=== PATIENT | female | born 1985 | race Caucasian/White ===

== ENCOUNTER 2018-04-06 07:00 | Inpatient (IN) | payer OTHER, SELFPAY ==
[2018-04-06] MEDS: Lactated Ringers 1,000 ML 50 ML IV ×2 (07:39→13:59)
[2018-04-06 07:40] VITALS: BMI 31.9
[2018-04-06] MEDS: Oxytocin 30 units/NS 500 ml 30 UNITS/500 ML IV.SOLN IV (08:10)
[2018-04-06 08:15] LABS: Hematocrit 33.8 % (37-47); Hemoglobin 11.8 g/dl (12.0-15.0); Mean Corp Hgb Conc 34.9 g/gl (32-36); Mean Corpuscular Hgb 30.9 pg (27.0-32.0); Mean Corpuscular Volume 88.5 fL (81-99); Mean Platelet Vol. 9.7 fl (6.2-12.0); Platelet Count 298 K/mm3 (150-450); RBC Distribution Width CV 12.7 % (11.6-14.6); RBC Distribution Width SD 39.6 fl (35.1-43.9); Red Blood Count 3.82 M/mm3 (4.2-5.4); White Blood Count 8.6 K/mm3 (4.4-11.0)
[2018-04-06 08:20] LABS: Scan Indicated on CBC? Y/N NO
--- NOTE | 2018-04-06 13:05 | PCM.HP.OB ---
History Date of Admission: 04/06/18 Final MERRITT: 04/10/18 Final MERRITT Source: US <20 weeks - confirmed by first trimester US Gestational age: 39 Weeks and 3 Days History of this : This is a 32 year-old, 2 para 1 female at 39 3/7 weeks with EDC of 04/10/2018 by last menstrual period confirmed by first trimester ultrasound presents today for induction of labor. This is an elective induction for maternal discomfort and history of LGA delivery of 9 pound 3 ounce without significant complications. Current has been uncomplicated to date. She denies any vaginal bleeding or leaking of fluid. She has not had any regular contractions. Allergies No Known Allergies Allergy (Verified 06/15/16 16:57) Home Medications: Home Medications Pnv with Ca #68/Iron/FA#1/Dha [Virt-Pn Plus Softgel] 1 each PO DAILY MDD 1 04/06/18 Smoking Status: Never smoker Alcohol: None Number of Fetus(es): 1 Heart Tracing: Normal baseline, moderate variability. Spontaneous accelerations without recurrent deceleration TOCO Analysis: Regular contractions History Past Pregnancies: Past Pregnancies Delivery Date Name GA/Weeks Outcome Route Weight Infant Gender Labor Length Anesthesia Delivery Location Provider FOB Expected Infant Delivery Method: Spontaneous Vaginal Review of Systems Constitutional: Denies: Anorexia, Chills Cardiovascular: Denies: Chest Pain Respiratory: Denies: Cough Genitourinary: Denies: Dysuria Skin: Denies: Rash Physical Exam General: Alert, Cooperative, No apparent distress Abdomen: Soft, Non-Distended, Gravid, Appropriate for Gestational Age Extremities:: Other - edema 1+ MOTOR INSTALLER: Normal external genitalia Estimated gestational size: Appropriate for gestational size Presentation: Cephalic Cervix Dilation (cm): 5 - AROM w/ moderate clear fluid Station: 0 Effacement (%): 80 Assessment/Plan This is a 32 year-old, 2 para 1 female at 39 3/7 weeks gestation for elective induction of labor due to history of previous 9 pound 3 ounce delivery. Estimated weight of this fetus is presently 4500 g clinically. Pelvis is clinically adequate to expect vaginal delivery. Risk benefits and alternatives to induction been discussed with the patient and her questions were answered to her satisfaction and consent was signed. Will undergo Pitocin and artificial rupture membranes as needed. May have epidural, nitrous oxide or Nubain as needed for pain control.
[2018-04-06] MEDS: fentaNYL-bupivacaine (epidural) 100 ML BAG EPIDURAL (14:02)
[2018-04-06] MEDS: Oxytocin 30 units/NS 500 ml 30 UNITS/500 ML IV.SOLN 334 UNITS IV (14:47)
--- NOTE | 2018-04-06 15:03 | PCM.OB.VAG ---
Vaginal Delivery Maternal Presentation: Elective Induction Method of Induction: Pitocin, Amniotomy Medical Reason for Induction: - - h/o LGA delivery Amniotic Membrane Rupture Type: Artificial Amniotic Fluid Description: Clear Final MERRITT: 04/10/18 Gestational age: 39 Weeks and 3 Days Date of Procedure: 04/06/18 Pre-Operative Diagnosis: labor Post-Operative Diagnosis: same Surgery/ Procedure Performed: Spontaneous Vaginal Delivery Type of Anesthesia: Epidural Description of Procedure: A vigorous female was delivered PENELOPE over a second-degree perineal laceration. The remainder the infant was delivered with maternal pushing and gentle traction only in less than 15 seconds. The Pitocin infusion was initiated for active management of the third stage. The cord was clamped and cut after 1 minute. The infant was attended to by the waiting nursing staff. The placenta was delivered spontaneously and intact. The cervix and vagina were intact. The second-degree perineal laceration was repaired with 3-0 Vicryl suture in a running standard fashion. Sponge and needle counts were correct. A vaginal sweep was completed by me. Presentation: PENELOPE Placental Delivery Description: Spontaneous Placenta Disposition: [facility] Cord Vessel Description: 3 Vessels Cord Entanglement: None Drain: - - none Estimated Blood Loss: 300 A gender: Female (1 minute): 9 (5 minute): 10 Episiotomy Description: None Laceration: 2nd degree
[2018-04-06] MEDS: Oxytocin 30 units/NS 500 ml 30 UNITS/500 ML IV.SOLN 167 UNITS IV (15:16)
[2018-04-06] MEDS: 0.9% Saline Lock 10 ML Syringe IV (16:43)
[2018-04-06 18:00] VITALS: BP 99/62; PULSE 79; RESP 16; TEMP 37
[2018-04-06 20:30] VITALS: BP 108/69; PULSE 71; RESP 16; TEMP 36.3
[2018-04-06] MEDS: Acetaminophen 500 MG Tablet 1000 MG PO (22:38)
[2018-04-07 00:50] VITALS: BP 119/60; PULSE 76; RESP 16; TEMP 36.4
[2018-04-07 04:00] VITALS: BP 119/70; PULSE 67; RESP 16; TEMP 36.6
[2018-04-07] MEDS: Acetaminophen 500 MG Tablet 1000 MG PO (07:52)
[2018-04-07 09:20] VITALS: BP 104/75; PULSE 68; RESP 16; TEMP 36.6; O2SAT 98
[2018-04-07 12:30] VITALS: BP 106/67; PULSE 70; RESP 16; TEMP 36.6; O2SAT 98
--- NOTE | 2018-04-07 12:30 | PCM.PN.OB ---
Subjective: pain well controlled, average lochia - Physical Exam General: Alert, Cooperative, No apparent distress Abdomen: Soft Vital Signs Temp Pulse Resp BP Pulse Ox 98 F 68 16 104/75 98 04/07/18 09:20 04/07/18 09:20 04/07/18 09:20 04/07/18 09:20 04/07/18 09:20 Oxygen Delivery Method Room Air Weight: 91.2 kg Body Mass Index (BMI) 31.9 Intake and Output for Last 24 Hours 04/05/18 04/06/18 04/07/18 23:59 23:59 23:59 Intake Total 3027 / 3027 Output Total 2100 / 2100 Balance 927 / 927 Medical Necessity - Tobacco Use Smoking Status: Never smoker Assessment/Plan PPD#1 s/p doing well desires d/c
--- NOTE | 2018-04-07 12:32 | PCM.DCVAG ---
Discharge Diet: No Restrictions Discharge Activity: Return to Normal Activity, May not drive while taking narcotic pain medications., May Shower May resume sexual activity in: 4-6 weeks Additional Activity Instructions:: Nothing in the vagina for 4-6 weeks. You may return to work/school in 6 weeks. Call your doctor if your incision/area has: Continuous Slow Oozing, Sudden Increased Bleeding, Increased Pain/ Swelling, Increased Redness, Foul Smelling Discharge Additional Instructions: If you experience any of the following, contact your healthcare provider. Bleeding that soaks a pad every hour for 2 hours Fever 100.4 or higher Unrelieved incision or abdominal pain Swelling, redness, discharge or bleeding from your incision or episiotomy site Your incision begins to separate Problems urinating (including inability to urinate or burning while urinating). Visual changes Severe headache Flu-like symptoms Pain or redness in one of both of your breasts Pain, warmth, tenderness or swelling in your legs, especially the calf area Frequent nausea and vomiting Symptoms of depression or anxiety If you experience any of the following, call 911 or go to the nearest Emergency Room. Chest pain Problems breathing Seizure activity Partial or complete paralysis of a body part, slurred speech, weakness or drooping of the face, or a sudden inability to walk or hold your balance Allergies/Adverse Reactions: Allergies No Known Allergies Allergy (Verified 06/15/16 16:57) Medications to take at Discharge Pnv with Ca #68/Iron/FA#1/Dha [Virt-Pn Plus Softgel] 1 each PO DAILY MDD 1 04/06/18 Please Follow Up With: Saray Eric MD - [phone] When: Call to make an appointment with your doctor in 2 and 6 weeks. Primary Care Physician: [facility] ,Out of [Primary Care Provider] - Test Results: Test results from this visit will be discussed in further detail at your follow-up appointment, if applicable.
--- NOTE | 2018-04-07 12:33 | DCINST_ITS ---
Discharge Diet: No Restrictions Discharge Activity: Return to Normal Activity, May not drive while taking narcotic pain medications., May Shower May resume sexual activity in: 4-6 weeks Additional Activity Instructions:: Nothing in the vagina for 4-6 weeks. You may return to work/school in 6 weeks. Call your doctor if your incision/area has: Continuous Slow Oozing, Sudden Increased Bleeding, Increased Pain/ Swelling, Increased Redness, Foul Smelling Discharge Additional Instructions: If you experience any of the following, contact your healthcare provider. * Bleeding that soaks a pad every hour for 2 hours * Fever 100.4 or higher * Unrelieved incision or abdominal pain * Swelling, redness, discharge or bleeding from your incision or episiotomy site * Your incision begins to separate * Problems urinating (including inability to urinate or burning while urinating). * Visual changes * Severe headache * Flu-like symptoms * Pain or redness in one of both of your breasts * Pain, warmth, tenderness or swelling in your legs, especially the calf area * Frequent nausea and vomiting * Symptoms of depression or anxiety If you experience any of the following, call 911 or go to the nearest Emergency Room. * Chest pain * Problems breathing * Seizure activity * Partial or complete paralysis of a body part, slurred speech, weakness or drooping of the face, or a sudden inability to walk or hold your balance Allergies/Adverse Reactions: Allergies No Known Allergies Allergy (Verified 06/15/16 16:57) Medications to take at Discharge Pnv with Ca #68/Iron/FA#1/Dha [Virt-Pn Plus Softgel] 1 each PO DAILY MDD 1 04/06/18 Please Follow Up With: Saray Eric MD - [phone] When: Call to make an appointment with your doctor in 2 and 6 weeks. Primary Care Physician: [facility] ,Out of [Primary Care Provider] - Test Results: Test results from this visit will be discussed in further detail at your follow- up appointment, if applicable.
[2018-04-07] MEDS: Ibuprofen 600 MG Tablet PO (13:37)
== END 2018-04-07 15:45 | disposition home or self-care (01) | DRG 807 ==
PROVIDERS: Admitting Provider Obstetrics & Gynecology; Referring Provider Obstetrics & Gynecology; Visit Provider Obstetrics & Gynecology
DX: O70.1 Second degree perineal laceration during delivery (principal); O75.89 Other specified complications of labor and delivery; Z37.0 Single live birth; Z3A.39 39 weeks gestation of pregnancy
CPT/HCPCS: 59025; 59050; 85027; 86850; 86900; 99218; J7120; A4216; G0378

== ENCOUNTER 2018-08-26 17:25 | Day surgery (SDC) | payer OTHER, SELFPAY ==
[2018-08-26 17:51] VITALS: BP 110/77; PULSE 75; RESP 16; TEMP 37.1; O2SAT 97
[2018-08-26 18:02] LABS: Hematocrit 37.5 % (37-47); Hemoglobin 12.7 g/dl (12.0-15.0); Mean Corp Hgb Conc 33.9 g/gl (32-36); Mean Corpuscular Hgb 30.7 pg (27.0-32.0); Mean Corpuscular Volume 90.6 fL (81-99); Mean Platelet Vol. 9.4 fl (6.2-12.0); Platelet Count 333 K/mm3 (150-450); RBC Distribution Width CV 11.7 % (11.6-14.6); RBC Distribution Width SD 37.5 fl (35.1-43.9); Red Blood Count 4.14 M/mm3 (4.2-5.4); White Blood Count 7.2 K/mm3 (4.4-11.0)
[2018-08-26 18:21] LABS: Scan Indicated on CBC? Y/N NO
[2018-08-26] MEDS: Cefazolin 1 GM/50 ML BAG IV (18:48)
[2018-08-26] MEDS: Bupivacaine Mpf 0.5% 30 ML VIAL (18:52)
--- NOTE | 2018-08-26 19:00 | PCM.OPRPT ---
Report of Operation Date of Procedure: 08/26/18 Pre-Operative Diagnosis: Acute pelvic pain, malpositioned IUD Post-Operative Diagnosis: Same Surgery/Procedure Performed:: Laparoscopic removal of intraperitoneal Mirena IUD Description of Surgical Findings:: Normal-appearing cervix, vagina, uterus, tubes and ovaries. Small perforation on the right side of the uterine fundus. paper products supervisor: None Type of Anesthesia:: General Anesthesiologist: Prabhjot Suresh Special Medications: None Specimen's removed: None Drains: none Estimated Blood Loss (mL): 10 Fluids Replaced: 800 cc lr Description of Procedure: The patient was taken to the operating room where she was prepped and draped in the dorsolithotomy position. A weighted speculum was placed in the vagina and the anterior lip of the cervix was grasped with a tenaculum. When I went to gently sound the uterus, the sound past easily through the uterine fundus. At that point, the decision was made not to proceed with the hysteroscopy since the uterine perforation was confirmed. The [place] uterine manipulator was placed into the uterus up to 7 cm and the balloon was inflated. Attention was turned to the abdomen. All port sites were infiltrated with 0.5% Marcaine before skin incisions were made. A 5 mm intraumbilical incision was made. The anterior abdominal wall was tented up with 2 towel clamps while a 5 mm blade less trocar and sleeve were inserted using the Optiview trocar utilized the abdominal wall layers. Intraperitoneal placement was confirmed with the laparoscope. The pneumoperitoneum was created and the underlying abdominal contents were intact. The patient was placed in Trendelenburg. A left lower quadrant port was placed under direct visualization lateral to the inferior epigastric vessels. The bowel was swept away and the above findings were noted. The IUD was lying in the posterior cul-de-sac. A grasper was placed through the port and removed intact without difficulty. A visualization of the pelvic structures, and the bowel and colon were performed. There was no ecchymoses, bleeding, or defects noted other than a nonbleeding small perforation site at the right side of the uterine fundus. The procedure in the office had been approximately 2 hours ago, and there was only a 5 cc clot in the posterior cul-de-sac. There was no active bleeding from the uterus, and there were no hematomas noted in the broad ligament. Decision was made to terminate the procedure. The lateral trocar was brought out under direct visualization and the site was hemostatic. Pneumoperitoneum was released. The skin incisions were closed with Monocryl suture in a subcuticular fashion and skin glue . The vaginal instruments were removed and the vaginal sweep was completed by me. The procedure was performed by me with assistance. All sponge and needle counts were correct and the patient was taken to the recovery room in stable condition. Grafts/Implants Used: None - Complications None - Admit VTE Documentation VTE Present on Admission: No VTE Mechan Device Prophylaxis: SCD's VTE Pharm Prophylaxis ordered?: No
--- NOTE | 2018-08-26 19:12 | PCM.DC.TUB ---
Discharge Diet: No Restrictions - Increase fluid intake for the next 48 hours. Discharge Activity: Return to Normal Activity, May Drive - when you are no longer taking pain/narcotic meds., May Shower, May Take a Tub Bath - in 3 days Return to work on:: 08/31/18 May shower in (days): 1 May resume sexual activity in: 2 weeks Additional Activity Instructions:: Ambulate often the next week after surgery. Nothing in the vagina for 5 days. Call your doctor if your incision/area has: Continuous Slow Oozing, Sudden Increased Bleeding, Increased Pain/ Swelling, Increased Redness, Foul Smelling Discharge Call your doctor if you observe: Fever of 101 or Higher Cleanse incision/area with: Soap & Water Allergies/Adverse Reactions: Allergies No Known Allergies Allergy (Verified 08/26/18 18:01) Medications to take at Discharge 68/Iron/Folic No1/Dha [Virt-Pn Plus Softgel] 1 each PO DAILY MDD 1 04/06/18 Hydrocodone/Acetaminophen [[place] 5-325 Tablet] 1 - 2 each PO Q6H PRN PRN #14 tablet 08/26/18 Ibuprofen [Motrin] 600 mg PO Q6H PRN #60 tablet 08/26/18 The following prescriptions were given: Hydrocodone/Acetaminophen [[place] 5-325 Tablet] 1 - 2 each PO Q6H PRN PRN #14 tablet PRN Reason: Mod-Severe Pain (4-10/10) Ibuprofen [Motrin] 600 mg PO Q6H PRN #60 tablet PRN Reason: Pain Primary Care Physician: [facility] ,Out of [Primary Care Provider] - Test Results: Test results from this visit will be discussed in further detail at your follow-up appointment, if applicable. Please Follow Up With: Saray Eric MD - [phone] When: 1-2 weeks or as needed
[2018-08-26 19:18] VITALS: BP 110/77; BP 114/87; PULSE 78; RESP 16; TEMP 36.5; O2SAT 96
[2018-08-26 19:30] VITALS: BP 110/77; BP 116/89; PULSE 65; RESP 16; O2SAT 98
[2018-08-26 19:45] VITALS: BP 110/77; BP 117/80; PULSE 60; RESP 16; TEMP 36.4; O2SAT 97
[2018-08-26 20:10] VITALS: BP 110/77
== END 2018-08-26 20:16 | disposition home or self-care (01) ==
LOC: SDC 17:26 → AC 17:29
PROVIDERS: Referring Provider Obstetrics & Gynecology; Visit Provider Obstetrics & Gynecology
PROC: (CPT 58661; principal; 2018-08-26 18:30)
DX: Z30.432 Encounter for removal of intrauterine contraceptive device (principal); R10.2 Pelvic and perineal pain; T83.89XA Other specified complication of genitourinary prosthetic devices, implants and grafts, initial encounter; Y83.9 Surgical procedure, unspecified as the cause of abnormal reaction of the patient, or of later complication, without mention of misadventure at the time of the procedure; Y92.9 Unspecified place or not applicable
CPT/HCPCS: 00840; 49320; 36415; 85027; J7120; J2405

== ENCOUNTER 2019-05-06 18:52 | Emergency (ER) | payer OTHER, SELFPAY ==
[2019-05-06 18:53] VITALS: BP 125/80; PULSE 97; RESP 16; TEMP 36.7; O2SAT 98; BMI 26.6
--- NOTE | 2019-05-06 19:00 | RAD_ITS ---
STUDY: X-RAY CHEST REASON FOR EXAM: Female, 33 years old. Chest pain TECHNIQUE: PA and lateral views of the chest COMPARISON: None. FINDINGS: The lungs are clear. There are no pleural effusions. There is no pneumothorax. The heart is normal in size. The visualized osseous structures are within normal limits. RAD/Chest PA and Lateral IMPRESSION: No acute thoracic pathology. Electronically Signed: Steve Pfeiffer, at 19:09 EST Tel , Service support ,
--- NOTE | 2019-05-06 21:08 | EKG12_ITS ---
Test Reason : SOB Blood Pressure : / mmHG Vent. Rate : 077 BPM Atrial Rate : 077 BPM P-R Int : 190 ms QRS Dur : 080 ms QT Int : 338 ms P-R-T Axes : 038 074 037 degrees QTc Int : 382 ms Normal sinus rhythm Nonspecific T wave abnormality Abnormal ECG Confirmed by SIRIA LY, MARCIE ([id number]), editor book KIKI GARCIA ([id number]) on 05/11/2019 2:11:51 PM Referred By: STUART Confirmed By:MARCIE BEVERLY MD
--- NOTE | 2019-05-06 21:10 | ED.VIS.CHEST ---
History of Present Illness Chief Complaint: Shortness of Breath Informant: Patient Onset: Weeks - 1 Activity at onset: Rest - but occured w/ exertion today Timing: Intermittent Quality: Tightness - across chest w/ radiation into left upper back/neck Location: Substernal Current Severity: Mild Maximum Severity: Moderate Worsened By: Exertion - today, around 4-5 hrs ago, Breathing Relieved By: Rest Associated Symptoms: Dyspnea, Lightheadedness - once today, Palpitations - couple times felt skip while sitting here in ED. Negative for: Nausea, Vomiting, Diaphoresis, Cough, Fever, Acid Reflux Narrative: Patient states she has been having a lot of stress at work and home. For this reason she did not think much about the episodes of chest tightness that she was having for the past week which were without any other associated symptoms. She usually runs about 15-20 miles per week and works out regularly. Today, she was walking on the treadmill and at about 2 miles she felt inexplicably dyspneic and having the chest tightness worsen. She stopped and felt lightheaded transiently. Over the past 4 5 hours she has had the symptoms persist although they are more mild. She feels like when she takes deep breath it is hard to inflate her lungs all the way because of things feeling tight, she does not have a focal sharp pleuritic pain. CVD Risk Factors: Negative for: Hypertension, Diabetes, Hypercholesterolemia, Family History 1' </=55, Smoking PE Risk Factors: Negative for: Recent Travel/Surgery, Recenet Immobilization, Prior DVT or PE, Cancer, OCP + Smoking + >/=35 TAD Risk Factors: Negative for: Marfan's Syndrome, Hypertension, Family History Past Medical History - Allergies and Home Meds Allergies/Adverse Reactions: Allergies No Known Allergies Allergy (Verified 08/26/18 18:01) Primary Care Physician: [facility],Out of [Primary Care Provider] - Past Medical History: None Surgical History: - - Laparoscopic abdominal surgery to remove the IUD embedded in her uterine wall 07/2018 Lives: With Family Smoking Status: Never smoker Drugs: None Review of Systems General: Denies: Chills, Fever, Sweats Eyes: Reports: - - Right eye pain since yesterday after her 1-year-old accidentally poked her in the eye. Denies: Visual changes - bilaterally, Diplopia ENT: Denies: Bilateral ear pain, Rhinorrhea, Sore throat Cardiovascular: Reports: Chest pain, Palpitations Respiratory: Reports: Dyspnea. Denies: Cough, Dyspnea on exertion Gastrointestinal: Denies: Abdominal pain, Nausea, Vomiting, Diarrhea, Melena, Hematochezia Genitourinary: Denies: Dysuria, Hematuria, Frequency Musculoskeletal: Reports: Neck pain, Back pain. Denies: Swelling, Extremity Pain Skin: Denies: Rash, Wounds Neurological: Denies: Headache, Weakness, Numbness Psych: Reports: - - stress Physical Exam Vital Signs/Narrative: Vital Signs Temp Pulse Resp BP Pulse Ox 05/06/19 18:53 98.0 F 97 16 125/80 H 98 Inital Vital Signs reviewed: Yes General: Well nourished, Well developed, No Acute Distress Head: Normocephalic, Atraumatic Eyes: Perrl, EOMI ENT: Moist mucous membranes, No rhinorrhea Neck: Supple, Nontender, No lymphadenopathy, No JVD Cardiovascular: Regular rate, Regular rhythm, No murmurs, Normal S1, Normal S2, - - Equal bilateral 2+/4 radial pulses. Negative for: Tachycardia Respiratory: No distress, CTA bilaterally, Chest nontender Abdomen: Soft, Nontender, Nondistended, Normal bowel sounds Back: Nontender, Normal Inspection Extremities: Nontender, No edema. Negative for: Calf Tenderness Skin: Normal color, No rash, No Trauma Neurological: Alert, Oriented x3, Cranial nerves II-XII grossly intact, Normal Strength, Normal Sensation Psychological: Normal affect, Normal Mood Diagnostic/Tx/Re-eval Impressions Chest X-Ray 05/06/19 19:00 IMPRESSION: No acute thoracic pathology. Electronically Signed: Steve Pfeiffer, at 19:09 EST Tel , Service support , 05/06/19 19:00 CXR [Chest PA and Lateral] [RAD] Stat Laboratory Results 05/06/19 05/06/19 05/06/19 21:20 21:20 21:20 WBC 4.0 L RBC 4.24 Hgb 12.8 Hct 38.0 MCV 89.6 MCH 30.2 MCHC 33.7 RDW Std Deviation 36.3 RDW Coeff of Shira 11.2 L Plt Count 235 MPV 9.0 Immature Gran % (Auto) 0.300 Neut % (Auto) 63.9 Lymph % (Auto) 25.3 [place] % (Auto) 9.9 Eos % (Auto) 0.3 Baso % (Auto) 0.3 Absolute Neuts (auto) 2.5 Absolute Lymphs (auto) 1.00 Nucleated RBC % 0 D-Dimer Quant (PE/DVT) < 0.27 L Sodium 139 Potassium 3.6 Chloride 103 Carbon Dioxide 27.0 Anion Gap 9 BUN 7 Creatinine 0.62 Estim Creat Clear Calc 119.69 Est GFR (MDRD) Af Amer 142 Est GFR (MDRD) Non-Af 117 BUN/Creatinine Ratio 11.3 Glucose 100 Calcium 9.2 Troponin I < 0.015 - Rhythm Strip Rhythm Strip: Sinus Rhythm Rate: 77 Ectopy: None - EKG Initial EKG Interpretation: Sinus Rhythm, No Acute Injury Pattern, Non-Specific ST Changes - inferior and septal-high lateral T-wave flattening; no ST segment deviations. Prior: No Prior Treatment: - - none Repeat Eval: Pain Free - Medical Decision Making Work-up is completely unremarkable except for some nonspecific T wave flattening on her EKG as above. Her d-dimer is negative ruling out PE. Her electrolytes and blood counts are normal, her troponin is negative after having episodes for a week. Etiology of this is unknown, she has had no evidence of a dysrhythmia here, she was offered nitroglycerin but had no chest discomfort when she was reevaluated, so she did not take any. Unknown if any of this is cardiac in etiology, it could be pulmonary or esophageal. At this time I feel she is stable to be discharged home to follow-up as an outpatient; she is comfortable with this plan as well. ED Disposition - Plan for ED Patient: Disposition: Home or Assisted Living Diagnosis: Intermittent chest pain Instructions: CHEST PAIN, Uncertain Cause Referrals: [facility] Doctor,Out of [Primary Care Provider] - 1 Week (call for appt)
[2019-05-06 21:17] VITALS: PULSE 80; RESP 16; O2SAT 98
[2019-05-06] MEDS: 0.9% Normal Saline 1,000 ML 150 ML IV (21:19)
[2019-05-06 21:27] LABS: Absolute Neutrophil Count 2.5 X10^3/uL (2.0-7.7); Basophil# 0.01 X10^3/uL; Basophil% 0.3 % (0-1); Eosinophil# 0.01 X10^3/uL; Eosinophils% 0.3 % (0-5); Hemoglobin 12.8 g/dL (12.0-15.0); Lymphocyte % 25.3 % (19-41); Mean Corp Hgb Conc 33.7 g/dL (32-36); Mean Corpuscular Hgb 30.2 pg (27.0-32.0); Mean Corpuscular Volume 89.6 fL (81-99); Monocyte# 0.39 X10^3/uL; Monocyte% 9.9 % (0-10); NRBC Flagged by Analyzer 0 % (0-5); Neutrophil # 2.53 X10^3/uL (2.7-7.7); Neutrophil % 63.9 % (47-70); Platelet Count 235 K/mm3 (150-450); RBC Distribution Width CV 11.2 % (11.6-14.6); RBC Distribution Width SD 36.3 fl (35.1-43.9); Red Blood Count 4.24 M/mm3 (4.2-5.4)
--- NOTE | 2019-05-06 21:40 | ED.RN ---
NO OLD EKG
[2019-05-06 21:45] LABS: Anion Gap 9 (5-15); BUN 7 mg/dL (7-18); BUN/Creat Ratio 11.3 RATIO (10-20); Calcium,Total 9.2 mg/dL (8.5-10.1); Chloride 103 mmol/L (98-107); Creatinine, Serum 0.62 mg/dL (0.55-1.02); EST Glomerular Filtration Rate 117 mL/min (>60); Est Glom Filt Rate - Afr Amer 142 mL/min (>60); Estimated Creatinine Clearance 119.69 ml/min; Glucose 100 mg/dL (74-106); Potassium 3.6 mmol/L (3.5-5.1); Sodium Level 139 mmol/L (136-145)
[2019-05-06 21:55] LABS: D-Dimer Quantitative (DVT/PE) < 0.27 FEU/ug/m (0.27-0.49)
[2019-05-06 23:00] VITALS: BP 132/78; PULSE 93; RESP 19; O2SAT 97
== END 2019-05-06 23:09 | disposition home or self-care (01) ==
PROVIDERS: Emergency Provider Emergency Medicine
DX: R07.9 Chest pain, unspecified (principal); R42 Dizziness and giddiness
CPT/HCPCS: 71046; 80048; 84484; 85025; 85379; 93005; 96360; 96361; 99284; J7030

== ENCOUNTER 2020-10-07 09:33 | Emergency (ER) | payer OTHER, SELFPAY ==
[2020-10-07 09:34] VITALS: BP 136/72; PULSE 101; RESP 18; TEMP 36.6; O2SAT 98; BMI 26.6
--- NOTE | 2020-10-07 10:14 | RAD_ITS ---
STUDY: X-RAY - LEFT HAND REASON FOR EXAM: Female, 34 years old. bite TECHNIQUE: 3 view(s) of the hand. COMPARISON: None. FINDINGS: Normal radiocarpal articulation. Normal distal radioulnar joint. Normal visualized carpal bones. Normal carpal articulations Normal carpometacarpal articulation of the thumb. Normal second through fifth carpometacarpal joints. Normal metacarpi. Normal metacarpophalangeal joint of the thumb. Normal interphalangeal joint of the thumb. Normal proximal and distal phalanges of the thumb. Normal metacarpophalangeal joints of the second through fifth fingers. Normal proximal and distal interphalangeal joints of the second through fifth fingers. Normal phalanges of the second through fifth fingers. The soft tissue structures are unremarkable. RAD/Hand Min 3 Views IMPRESSION: No evidence of acute osseous abnormality. Electronically Signed: Erlin Florian DO at 11:03 EDT , Service support ,
--- NOTE | 2020-10-07 10:14 | RAD_ITS ---
STUDY: X-RAY - LEFT RADIUS AND ULNA REASON FOR EXAM: Female, 34 years old. bite TECHNIQUE: 2 view(s) of the forearm. COMPARISON: None. FINDINGS: There is no demonstrated soft tissue swelling. Normal visualized radius. Normal visualized ulna. RAD/Forearm 2 Views IMPRESSION: No evidence of acute osseous abnormality. Electronically Signed: Erlin Florian DO at 11:02 EDT , Service support ,
--- NOTE | 2020-10-07 10:23 | ED.DCSUM_ITS ---
History of Present Illness Chief Complaint: Bite Informant: Patient Onset: Today Current Severity: Mild Maximum Severity: Moderate Narrative: Patient presents with dog bites to her left hand and forearm. She states that her son accidentally let the dog out of the house. He ran into the street and got hit by a car. She picked the dog up to carry him to the car so he could be taken to the vet and the dog bit her left arm and hand. Dog is 8 months old. Patient is right-hand dominant. She denies paresthesias or weakness in her hand. Past Medical History - Allergies and Home Meds Allergies/Adverse Reactions: Allergies No Known Allergies Allergy (Verified 10/07/20 09:34) Primary Care Physician: Ignacio Rodriguez,Out of [Primary Care Provider] - Past Medical History: None Surgical History: - - Laparoscopic abdominal surgery to remove the IUD embedded in her uterine wall 07/2018 Lives: With Family Smoking Status: Never smoker Review of Systems General: Denies: Chills, Fever Eyes: Denies: Visual changes - bilaterally ENT: Denies: Bilateral ear pain Cardiovascular: Denies: Chest pain Respiratory: Denies: Dyspnea, Cough Gastrointestinal: Denies: Abdominal pain Musculoskeletal: Reports: Extremity Pain Skin: Reports: Wounds Neurological: Denies: Weakness, Parasthesia, Numbness Hematologic: Denies: Easy bruising, Easy bleeding Allergy: Denies: Uticaria Physical Exam Vital Signs/Narrative: Vital Signs Temp Pulse Resp BP Pulse Ox 10/07/20 09:34 97.8 F 101 H 18 136/72 H 98 Inital Vital Signs reviewed: Yes General: Well nourished, Well developed Head: Normocephalic ENT: Moist mucous membranes Cardiovascular: Regular rate, Regular rhythm Respiratory: No distress, CTA bilaterally Abdomen: Soft, Nontender Extremities: - - Patient presents with multiple small bite wounds to her left hand and left forearm. There are 2 superficial wounds to the left forearm measuring 4 mm each. There are 2 on the left 4 measuring 3 mm each. On the left hand there are 3 wounds measuring 3 mm each. Bleeding is well controlled. Neurological: Alert, Oriented x3, Normal Strength, Normal Sensation Psychological: Normal affect Diagnostic/Tx/Re-eval Impressions Forearm X-Ray 10/07/20 10:14 IMPRESSION: No evidence of acute osseous abnormality. Electronically Signed: Erlin Florian DO at 11:02 EDT , Service support , Hand X-Ray 10/07/20 10:14 IMPRESSION: No evidence of acute osseous abnormality. Electronically Signed: Erlin Florian, DO at 11:03 EDT , Service support , 10/07/20 10:14 Forearm 2 Views [RAD] Stat Hand Min 3 Views [RAD] Stat - Medical Decision Making Left hand and forearm x-rays per my interpretation reveal no evidence of foreign body. No bony injury. Wounds are cleansed and dressed. Patient be given a dose of Augmentin and naproxen here for pain. Tetanus will be updated. She will be given prescription for 3 days of Augmentin as well as naproxen at home for pain. ED Disposition - Plan for ED Patient: Disposition: Home or Assisted Living Diagnosis: Dog bite of left upper extremity Instructions: ED Dog Bite Prescriptions: Amox/Clavulanate Tablet [Augmentin Tablet] 875 mg PO Q12H #6 tab Transmission Status: Pending to [facility] Naproxen [Naprosyn] 500 mg PO BID PRN PRN #20 tablet PRN Reason: Pain Score 4-10 Transmission Status: Pending to [facility] Referrals: [facility] Doctor,Out of [Primary Care Provider] - 1 Week if not improving
[2020-10-07] MEDS: Diphth,Pertuss(Acell),Tet Vac 0.5 ML Vial IM (11:07)
[2020-10-07] MEDS: Amox/Clavulanate 875 MG Tablet PO (11:07)
[2020-10-07] MEDS: Naproxen 500 MG Tablet PO (11:07)
== END 2020-10-07 11:18 | disposition home or self-care (01) ==
LOC: ED 11:14
PROVIDERS: Emergency Provider Emergency Medicine
DX: S60.572A Other superficial bite of hand of left hand, initial encounter (principal); S50.872A Other superficial bite of left forearm, initial encounter; Z23 Encounter for immunization; W54.0XXA Bitten by dog, initial encounter; Y93.89 Activity, other specified; Y92.410 Unspecified street and highway as the place of occurrence of the external cause; Y99.8 Other external cause status
CPT/HCPCS: 73090; 73130; 90471; 90715; 99283

== ENCOUNTER 2023-10-18 23:47 | Emergency (ER) | payer OTHER, SELFPAY ==
[2023-10-18 23:48] VITALS: BP 105/73; PULSE 83; RESP 16; TEMP 35.7
[2023-10-18 23:49] VITALS: BP 105/73; PULSE 83; RESP 16; TEMP 35.7; BMI 28.5
--- NOTE | 2023-10-19 00:31 | EX.ED.DYSGE1 ---
HPI History of Present Illness Chief Complaint: General Illness Informant: patient Narrative Narrative: Presents here with significant other increasing swelling itchy rash throughout her body since this morning. Reports joint pains. 3 to 4 days ago had fever chills myalgias. Slight cough. Works at a school. No vomiting or diarrhea. No urinary symptoms. Took Benadryl today symptoms subsiding. No lip or tongue swelling. No past medical history. PFSH PFSH Home Medications amoxicillin 875 mg-potassium clavulanate 125 mg tablet 875 mg (0.875 x 875-125 mg) PO Q12H #6 TABLETS 10/07/20 [Rx Last Taken Unknown] naproxen 500 mg tablet 500 mg PO BID PRN PRN Pain Score 4-10 #20 tabs 10/07/20 [Rx Last Taken Unknown] Allergy/AdvReac Type Severity Reaction Status Date / Time No Known Allergies Allergy Verified 10/18/23 23:49 Social History Smoking Status: Never smoker ROS ROS ED Constitutional Constitutional ED: Reports chills and fever(s); Denies sweats Eyes Eyes: Denies change in vision ENT ENT ED: Denies dysphagia or sore throat Cardiovascular Cardiovascular: Denies chest pain, leg edema, palpitations or racing heartbeat Respiratory/Chest Respiratory/Chest: Denies cough, dyspnea or dyspnea on exertion Gastrointestinal Gastrointestinal: Denies abdominal pain, diarrhea, nausea or vomiting Genitourinary Genitourinary ED: Denies dysuria, hematuria or urinary frequency Musculoskeletal Musculoskeletal: Reports myalgias; Denies back pain, extremity pain or neck pain Integumentary Reports rash; Denies wounds Neurologic Neurologic: Denies headache(s), paresthesias or weakness EXAM Physical Exam Const Vital Signs: 10/18/23 23:49 10/18/23 23:48 10/19/23 00:00 Temperature 96.3 F L 96.3 F L Temperature Source Temporal Temporal Pulse Rate 83 83 Respiratory Rate 16 16 Respiratory Effort Normal Respiratory Pattern Normal Blood Pressure 105/73 105/73 Blood Pressure Mean 83 83 Pulse Ox Oxygen Delivery Method 10/19/23 01:48 10/19/23 03:00 10/19/23 03:05 Temperature 97 F L Temperature Source Pulse Rate 67 68 Respiratory Rate 16 16 16 Respiratory Effort Respiratory Pattern Blood Pressure 107/61 107/61 Blood Pressure Mean 76 76 Pulse Ox 100 100 Oxygen Delivery Method Room Air Positive well nourished and well developed General Appearance ED: well developed and NAD HEENT Reports TM's clear and moist mucous membranes HEENT Narrative: No lip or tongue swelling. No posterior pharyngeal erythema. normocephalic and atraumatic Tympanic Membrane ED: Yes TM's clear Eyes PERRL, EOMs intact bilaterally and conjunctivae normal General Eye ED: Yes normal appearance of both eyes Neck no lymphadenopathy and supple General: Negative for tenderness Chest Wall Chest: Negative for tenderness Resp normal respiratory effort and normal air movement Effort and Inspection: symmetric chest movement; Negative for respiratory distress Cardio regular rate, regular rhythm and no murmurs Peripheral Pulses: pulses 2+ throughout GI normal to inspection, nondistended, normoactive bowel sounds and non-tender Palpation: Negative for guarding or rebound tenderness present Back/Spine no CVA tenderness and no thoracic nor lumbar tenderness Extremity normal to inspection General Extremety ED: Negative for edema or tenderness General Extremity: Negative for edema Neuro oriented x3 and no sensory deficits noted Sensorium / Orientation: awake and alert Skin no wounds Skin Narrative: Generalized flushing arms and legs, patch of papules on left posterior shoulder. Fingers had mild swelling. MDM MDM MDM Narrative Medical decision making narrative: Interventions / MDM: Differential diagnosis: Viral syndrome, serum sickness Diagnosis considered but do not suspect: N/A My EKG interpretation: N/A Imaging independently reviewed and interpreted by myself: N/A External documents reviewed: N/A Test considered but not ordered:N/A ED course: Nontoxic. No airway compromise with swelling. Improving with Benadryl. History recent illness fevers myalgias. COVID influenza and RSV sent. Basic labs ordered. Labs stable viral swabs are negative. Reevaluation symptoms continue to improve. History exam consistent with serum sickness with her recent viral syndrome. She will continue Benadryl as needed. Discussed that should be self-limiting. Outpatient follow-up. Return precautions. All questions were answered. Re-evaluation: stable Disposition discussed with patient/family/significant other: Patient and significant other. Case discussed with consulting clinician: N/A This note was generated with [email or web address] dictation software. It may contain incorrect words, spelling, and punctuation that were not noted in checking the note before signing. Lab Data Attestation: I reviewed the patient's lab results. Labs: Laboratory Results - last 24 hr 10/19/23 00:40 WBC 3.6 L RBC 4.06 L Hgb 12.4 Hct 35.3 L MCV 86.9 MCH 30.5 MCHC 35.1 RDW Std Deviation 36.5 RDW Coeff of Shira 11.4 L Plt Count 155 MPV 10.2 Immature Gran % (Auto) 0.000 Neut % (Auto) 46.1 L Lymph % (Auto) 42.5 H [place] % (Auto) 5.0 Eos % (Auto) 6.1 H Baso % (Auto) 0.3 Absolute Neuts (auto) 1.7 L Absolute Lymphs (auto) 1.53 Nucleated RBC % 0 Differential Comment SCANNED Sodium 138 Potassium 3.5 Chloride 104 Carbon Dioxide 30.0 Anion Gap 4 L BUN 6 L Creatinine 0.54 L Estim Creat Clear Calc 150.79 Est GFR (MDRD) Af Amer 162 Est GFR (MDRD) Non-Af 134 BUN/Creatinine Ratio 11.1 Glucose 100 Calcium 8.3 L Discharge Plan Triage Chief Complaint: General Illness ED Provider: Itz Rodriguez Dx/Rx/DC Orders Clinical Impression: Serum sickness, Acute viral syndrome, Rash Instructions: Serum Sickness-Like Reaction (SSLR), ED Viral Syndrome (Adult) Prescriptions: No Action amoxicillin-pot clavulanate 875 MG tablet 875 mg PO Q12H Qty: 6 0RF naproxen 500 MG tablet 500 mg PO BID PRN PRN (Reason: Pain Score 4-10) Qty: 20 0RF Primary Care Provider: Care Physician,No Primary Referrals: Care Physician,No Primary [Primary Care Provider] - Activity Restrictions/Additional Instructions: COVID, influenza, RSV negative. Labs are stable. Continue Benadryl 25 to 50 mg every 6 hours as needed. Continue oral fluids for hydration. Disposition Disposition: Home, Self Care Discharge Date/Time: 10/19/23 03:07
[2023-10-19 01:04] LABS: Absolute Lymphocyte Count 1.53 X10^3/uL (0.83-4.51); Absolute Neutrophil Count 1.7 X10^3/uL (2.0-7.7); Basophil# 0.01 X10^3/uL; Basophil% 0.3 % (0-1); Eosinophil# 0.22 X10^3/uL; Eosinophils% 6.1 % (0-5); Hematocrit 35.3 % (37-47); Hemoglobin 12.4 g/dL (12.0-15.0); Lymphocyte # 1.53 X10^3/ul (0.83-4.51); Lymphocyte % 42.5 % (19-41); Mean Corp Hgb Conc 35.1 g/dL (32-36); Mean Corpuscular Hgb 30.5 pg (27.0-32.0); Mean Corpuscular Volume 86.9 fL (81-99); Mean Platelet Vol. 10.2 fl (6.2-12.0); Monocyte# 0.18 X10^3/uL; NRBC Flagged by Analyzer 0 % (0-5); Neutrophil # 1.66 X10^3/uL (2.7-7.7); Neutrophil % 46.1 % (47-70); POSITIVE MORPHOLOGY YES; Platelet Count 155 K/mm3 (150-450); RBC Distribution Width CV 11.4 % (11.6-14.6); RBC Distribution Width SD 36.5 fl (35.1-43.9); Red Blood Count 4.06 M/mm3 (4.2-5.4); White Blood Count 3.6 K/mm3 (4.4-11.0)
[2023-10-19 01:11] LABS: Anion Gap 4 (5-15); BUN 6 mg/dL (7-18); BUN/Creat Ratio 11.1 RATIO (10-20); Calcium,Total 8.3 mg/dL (8.5-10.1); Chloride 104 mmol/L (98-107); Creatinine, Serum 0.54 mg/dL (0.55-1.02); EST Glomerular Filtration Rate 134 mL/min (>60); Est Glom Filt Rate - Afr Amer 162 mL/min (>60); Estimated Creatinine Clearance 150.79 ml/min; Glucose 100 mg/dL (74-106); Potassium 3.5 mmol/L (3.5-5.1); Sodium Level 138 mmol/L (136-145)
[2023-10-19 01:48] VITALS: BP 107/61; PULSE 67; RESP 16; O2SAT 100
[2023-10-19 02:20] LABS: Differential Indicated SCAN CRITERIA MET
[2023-10-19 02:22] LABS: Differential Comment SCANNED
[2023-10-19 03:00] VITALS: RESP 16
[2023-10-19 03:05] VITALS: BP 107/61; PULSE 68; RESP 16; TEMP 36.1; O2SAT 100
== END 2023-10-19 03:07 | disposition home or self-care (01) ==
PROVIDERS: Emergency Provider Emergency Medicine; Visit Provider Emergency Medicine
DX: T80.69XA Other serum reaction due to other serum, initial encounter (principal); R21 Rash and other nonspecific skin eruption; B34.9 Viral infection, unspecified; X58.XXXA Exposure to other specified factors, initial encounter
CPT/HCPCS: 80048; 85025; 87631; 99282; A4216